=== PATIENT | male | born 1955 | race Caucasian/White ===

== ENCOUNTER 2017-01-17 10:55 | Outpatient (CLI) | payer OTHER | END 2017-01-17 23:00 | LOC: LAB SRH 10:55 | DX: E55.9 Vitamin D deficiency, unspecified (principal); I10 Essential (primary) hypertension; Z86.73 Personal history of transient ischemic attack (TIA), and cerebral infarction without residual deficits | CPT/HCPCS: 90074; 90100; 91096; 91286; 92690; 95059 ==